=== PATIENT | male | born 1985 | race Caucasian/White ===

== ENCOUNTER 2021-12-23 21:16 | Emergency (ER) | payer SELFPAY ==
[~2021-12-23] VITALS: Ht 177.8 cm; Wt 81.6 kg
[2021-12-23] MEDS ORDERED: diphenhydrAMINE 50 MG/1 ML VIAL ONE (21:19)
[2021-12-23] MEDS ORDERED: HALOPERIDOL LACTATE 5 MG/1 ML VIAL ONE (21:19)
[2021-12-23] MEDS ORDERED: LORAZEPAM 2 MG/1 ML VIAL ONE (21:20)
[2021-12-23] MEDS ORDERED: LORAZEPAM 2 MG/1 ML VIAL IM ONE (21:30)
[2021-12-23] MEDS ORDERED: IV NORMAL SALINE 1000 ML BAG IV ONE (21:30)
[2021-12-23] MEDS ORDERED: HALOPERIDOL LACTATE 5 MG/1 ML VIAL IM ONE (21:30)
[2021-12-23] MEDS ORDERED: diphenhydrAMINE 50 MG/1 ML VIAL IM ONE (21:30)
[2021-12-23 22:05] LABS: HEMATOCRIT 40.2 % (36.7-47.1); MEAN CORPUSCULAR HEMOGLOBIN 28.5 uug (23.8-33.4); MEAN CORPUSCULAR VOLUME 85.2 fL (73.0-96.2); PLATELET COUNT (AUTO) 284 K/uL (152-348)
[2021-12-23 22:14] LABS: ALANINE AMINOTRANSFERASE 21 U/L (16-63); ALKALINE PHOSPHATASE 74 U/L (50-136); ASPARTATE AMINOTRANSFERASE 28 U/L (15-37); BILIRUBIN,DIRECT 0.2 mg/dL (0.0-0.2); BILIRUBIN,TOTAL 1.1 mg/dL (0.2-1.0); CARBON DIOXIDE 23 mmol/L (21-32); CHLORIDE 103 mmol/L (98-107); CREATININE 1.1 mg/dL (0.6-1.3); GLUCOSE 116 mg/dL (74-106); POTASSIUM 4.2 mmol/L (3.5-5.1); TOTAL PROTEIN, SERUM 8.6 g/dL (6.4-8.2); UREA NITROGEN, BLOOD 38 mg/dL (7-18)
--- NOTE | 2021-12-23 22:14 | NUR ---
pt went to cat scan and has returned.
--- NOTE | 2021-12-23 22:23 | NUR ---
pt was bib for seizure.
[2021-12-23 22:31] LABS: ETHANOL < 3 MG/DL (0-0)
[2021-12-24 02:34] LABS: *BILIRUBIN,URIN NEGATIVE (NEGATIVE); *BLOOD, URINE NEGATIVE (NEGATIVE); *CLARITY,URINE CLEAR (CLEAR); *COLOR,URINE YELLOW (YELLOW); *KETONES,URINE NEGATIVE (NEGATIVE); *UROBILINOGEN,URINE 0.2 E.U./dl (NORMAL); LEUKOCYTE ESTERASE ,URINE NEGATIVE (NEGATIVE); NITRITE, URINE NEGATIVE (NEGATIVE); UGLUCOSE NEGATIVE (NEGATIVE)
--- NOTE | 2021-12-24 03:50 | NUR ---
pt arouses easily and is only able to give his name. he denies any pain.
[2021-12-24 04:57] LABS: *AMPHETAMINE, URINE POSITIVE (NEGATIVE); *CANNABINOID, URINE NEGATIVE (NEGATIVE); *COCCAINE, URINE NEGATIVE (NEGATIVE); *PHENCYCLIDINE SCREEN,URINE POSITIVE (NEGATIVE)
--- NOTE | 2021-12-24 07:08 | NUR ---
Report given to MIGUE Vale.
--- NOTE | 2021-12-24 09:30 | NUR ---
PT FULLY AWAKE - ASKING FOR BREAKFAST. TOLERATED FOOD WELL. AMBULATORY WITHOUT ASSISTANCE.
--- NOTE | 2021-12-24 10:29 | NUR ---
DISCHARGE INSTRUCTIONS GIVEN. SALINE LOCK REMOVED. PT THREW BACK DISCHARGE NOTES, AND WALKED OUT RUDELY.
[2021-12-24 10:34] VITALS: BP 104/68
== END 2021-12-24 10:34 | disposition home or self-care (01) ==
LOC: ER 21:22
DX: F15.121 Other stimulant abuse with intoxication delirium (principal); R79.89 Other specified abnormal findings of blood chemistry; Z59.00 Homelessness unspecified; F17.200 Nicotine dependence, unspecified, uncomplicated
CPT/HCPCS: 80076; 80048; 82550; 85025; 84484; 93005; 71045; 70450; 72125; 99285; 96360; 96361; 96372 ×2; 80320; 80307; 81003; J1200; J1630; J2060; J7040; 36415; A4663; G0480